=== PATIENT | male | born 1995 | race Caucasian/White ===

== ENCOUNTER 2019-03-08 22:46 | Emergency (ER) | payer BC ==
[~2019-03-08] VITALS: Ht 182.9 cm; Wt 93.4 kg
[2019-03-08 22:54] VITALS: BP 135/95; Ht 182.9 cm; Wt 93.4 kg
== END 2019-03-09 00:03 | disposition home or self-care (01) ==
LOC: ED 22:46
DX: S93.402A Sprain of unspecified ligament of left ankle, initial encounter (principal); X58.XXXA Exposure to other specified factors, initial encounter; Y93.67 Activity, basketball; Y92.310 Basketball court as the place of occurrence of the external cause; Y99.8 Other external cause status
CPT/HCPCS: J1885